=== PATIENT | male | born 1990 | race African-American/Black ===

== ENCOUNTER 2016-11-27 07:04 | Emergency (ER) | payer MEDICAID ==
[~2016-11-27] VITALS: Ht 175.3 cm; Wt 88.0 kg
[2016-11-27] MEDS ORDERED: KETOROLAC 60MG/2ML VIAL IM ONE (09:30)
[2016-11-27 09:41] LABS: BASOPHILS % 0.8 % (0.0-2.0); EOSINOPHILS % 9.6 % (0.0-5.0); HEMATOCRIT. 39.8 % (42.0-52.0); HEMOGLOBIN. 13.7 g/dL (14.0-18.0); MEAN CORPUSCULAR HEMOGLOBIN 28.6 pg (28.0-32.0); MEAN CORPUSCULAR VOLUME 83.2 fL (80.0-94.0); MEAN PLATELET VOLUME 7.4 fl (7.4-10.4); MONOCYTES % 11.6 % (2.0-8.0); PLATELET 190 x1000/uL (130-400); RED BLOOD CELL COUNT 4.79 mill/uL (4.7-6.1); RED CELL DISTRIBUTION WIDTH 14.1 % (11.6-14.6)
[2016-11-27 09:46] LABS: CHLORIDE 110 mEq/L (98-107)
[2016-11-27 09:54] LABS: CARBON DIOXIDE 24 mEq/L (21-32)
[2016-11-27] MEDS ORDERED: HYDROCODONE/ACETAMINOPHEN 5/325MG TABLET PO ONE (11:30)
[2016-11-27] MEDS ORDERED: LIDOCAINE HCL 1% 20ML VIAL (Pyxis) INJ MC ONE (11:30)
[2016-11-27] MEDS ORDERED: CEFTRIAXONE SODIUM 250 MG/VIAL IM ONE (11:30)
[2016-11-27 12:13] VITALS: BP 132/62
== END 2016-11-27 12:14 | disposition home or self-care (01) ==
LOC: ER 07:36
DX: L03.114 Cellulitis of left upper limb (principal)
CPT/HCPCS: 36415; 73130; 80053; 85025; 96372; 99285; J0696; J1885; J3490

== ENCOUNTER 2017-02-21 07:29 | Emergency (ER) | payer MEDICAID ==
[~2017-02-21] VITALS: Ht 175.3 cm; Wt 82.0 kg
[2017-02-21] MEDS ORDERED: KETOROLAC 30MG/ML VIAL IV ONE (08:15)
[2017-02-21 08:21] LABS: BASOPHILS % 0.3 % (0.0-2.0); EOSINOPHILS % 1.1 % (0.0-5.0); HEMOGLOBIN. 12.7 g/dL (14.0-18.0); LYMPHOCYTES % 24.1 % (20.0-50.0); MEAN CORPUSCULAR HEMOGLOBIN 27.9 pg (28.0-32.0); MEAN CORPUSCULAR VOLUME 81.3 fL (80.0-94.0); MEAN PLATELET VOLUME 7.8 fl (7.4-10.4); NEUTROPHILS % 62.5 % (40.0-76.0); PLATELET 225 x1000/uL (130-400); RED BLOOD CELL COUNT 4.56 mill/uL (4.7-6.1); RED CELL DISTRIBUTION WIDTH 13.4 % (11.6-14.6)
[2017-02-21 08:23] LABS: INR 1.1; PROTHROMBIN TIME 11.4 sec (9.4-11.6)
[2017-02-21 08:30] LABS: CARBON DIOXIDE 24 mEq/L (21-32); CHLORIDE 104 mEq/L (98-107)
[2017-02-21 08:32] LABS: TROPONIN I < 0.02 ng/mL (0.00-0.04)
[2017-02-21 12:46] VITALS: BP 131/70
== END 2017-02-21 12:57 | disposition home or self-care (01) ==
LOC: ER 07:43
DX: R07.9 Chest pain, unspecified (principal); J45.909 Unspecified asthma, uncomplicated; R50.9 Fever, unspecified
CPT/HCPCS: 36415; 71010; 80053; 84484; 85025; 85610; 93005; 96374; 99285; J1885; Z7610

== ENCOUNTER 2018-01-23 05:15 | Emergency (ER) | payer MEDICAID ==
[~2018-01-23] VITALS: Ht 175.3 cm; Wt 92.9 kg
[2018-01-23 07:00] VITALS: BP 136/86
== END 2018-01-23 07:00 | disposition home or self-care (01) ==
LOC: ER 05:15
DX: B35.3 Tinea pedis (principal); L03.116 Cellulitis of left lower limb; L03.115 Cellulitis of right lower limb; J45.909 Unspecified asthma, uncomplicated; R03.0 Elevated blood-pressure reading, without diagnosis of hypertension
CPT/HCPCS: 82962; 99283

== ENCOUNTER 2018-03-07 10:03 | Emergency (ER) | payer MEDICAID ==
[~2018-03-07] VITALS: Ht 180.3 cm; Wt 92.0 kg
[2018-03-07] MEDS ORDERED: SODIUM CHLORIDE 0.9% 1,000 ML IV ONE (11:10)
[2018-03-07] MEDS ORDERED: METOCLOPRAMIDE HCL 10MG/2ML VIAL IV STA (11:10)
[2018-03-07] MEDS ORDERED: MORPHINE SULFATE 4 MG/ML CPJ (NOT FOR IM USE) IV STA (11:10)
[2018-03-07] MEDS ORDERED: PANTOPRAZOLE SODIUM 40 MG/VIAL IV STA (11:10)
[2018-03-07 12:29] LABS: BASOPHILS % 0.9 % (0.0-2.0); EOSINOPHILS % 2.8 % (0.0-5.0); HEMOGLOBIN. 15.3 g/dL (14.0-18.0); LYMPHOCYTES % 27.6 % (20.0-50.0); MEAN CORPUSCULAR HEMOGLOBIN 27.7 pg (28.0-32.0); MEAN CORPUSCULAR VOLUME 83.4 fL (80.0-94.0); MEAN PLATELET VOLUME 7.4 fl (7.4-10.4); MONOCYTES % 10.1 % (2.0-8.0); NEUTROPHILS % 58.6 % (40.0-76.0); PLATELET 230 x1000/uL (130-400); RED BLOOD CELL COUNT 5.51 mill/uL (4.7-6.1); RED CELL DISTRIBUTION WIDTH 14.4 % (11.6-14.6)
[2018-03-07 12:34] LABS: CHLORIDE 104 mEq/L (98-107)
[2018-03-07 12:36] LABS: PROTHROMBIN TIME 9.9 sec (9.1-11.1)
[2018-03-07 12:56] LABS: CLARITY URINE CLEAR (CLEAR); COLOR URINE YELLOW (YELLOW); KETONES URINE TRACE (NEGATIVE); LEUKOCYTE ESTERASE URINE NEGATIVE (NEGATIVE); NITRITE URINE NEGATIVE (NEGATIVE); OCCULT BLOOD URINE NEGATIVE (NEGATIVE); PROTEIN URINE NEGATIVE (NEGATIVE); SPECIFIC GRAVITY URINE 1.028 (1.005-1.030); UROBILINOGEN URINE 0.2 E.U./dL (0.2-1.0)
[2018-03-07] MEDS ORDERED: DICYCLOMINE 10 MG/5 ML ORAL SYR PO STA (13:12)
[2018-03-07] MEDS ORDERED: VISCOUS LIDOCAINE 2% 15 ML UDC PO STA (13:12)
[2018-03-07] MEDS ORDERED: MAGNESIUM/ALUMINUM HYDROXIDE/SIMETHICONE 30ML UDC PO STA (13:12)
[2018-03-07 14:05] VITALS: BP 115/70
== END 2018-03-07 14:30 | disposition home or self-care (01) ==
LOC: ER 10:03
DX: R10.13 Epigastric pain (principal); R10.11 Right upper quadrant pain; R11.10 Vomiting, unspecified; J45.909 Unspecified asthma, uncomplicated
CPT/HCPCS: 36415; 76705; 80053; 81003; 83690; 85025; 85610; 93005; 96374; 96375; 99284; C9113; J2270; J2765; J7030

== ENCOUNTER 2018-09-16 23:54 | Emergency (ER) | payer MEDICAID ==
[~2018-09-16] VITALS: Ht 175.3 cm; Wt 105.0 kg
[2018-09-17] MEDS ORDERED: PREDNISONE 20MG TABLET PO STA (02:02)
[2018-09-17] MEDS ORDERED: IPRATROPIUM BROMIDE (0.02%) 0.5MG/2.5ML NEB HHN STA (02:02)
[2018-09-17] MEDS ORDERED: ALBUTEROL (0.083%) 2.5MG/3ML NEB HHN STA (02:02)
[2018-09-17 05:36] VITALS: BP 129/75
== END 2018-09-17 05:57 | disposition home or self-care (01) ==
LOC: ER 23:54
DX: J45.901 Unspecified asthma with (acute) exacerbation (principal)
CPT/HCPCS: 94644; 99285; J7512; J7611; Z7610

== ENCOUNTER 2018-10-05 22:25 | Emergency (ER) | payer MEDICAID ==
[~2018-10-05] VITALS: Ht 175.3 cm; Wt 100.0 kg
[2018-10-05] MEDS ORDERED: PREDNISONE 20MG TABLET PO STA (23:07)
[2018-10-05] MEDS ORDERED: ALBUTEROL (0.083%) 2.5MG/3ML NEB HHN STA (23:07)
[2018-10-05] MEDS ORDERED: IPRATROPIUM BROMIDE (0.02%) 0.5MG/2.5ML NEB HHN STA (23:07)
[2018-10-06 00:57] VITALS: BP 115/76
== END 2018-10-06 00:58 | disposition home or self-care (01) ==
LOC: ER 22:25
DX: J45.901 Unspecified asthma with (acute) exacerbation (principal)
CPT/HCPCS: 71045; 87804; 94644; 99285; J7512; J7611; Z7610

== ENCOUNTER 2021-04-26 17:41 | Emergency (ER) | payer MEDICAID ==
[~2021-04-26] VITALS: Ht 175.3 cm; Wt 98.0 kg
[2021-04-26] MEDS ORDERED: CETI10TA6 MT (20:09)
[2021-04-26] MEDS ORDERED: HYDR453.3 TP (20:09)
[2021-04-26 20:17] VITALS: BP 132/88
== END 2021-04-26 20:19 | disposition home or self-care (01) ==
LOC: ER 17:41
DX: L30.9 Dermatitis, unspecified (principal); J45.909 Unspecified asthma, uncomplicated
CPT/HCPCS: 99282

== ENCOUNTER 2021-05-27 11:07 | Emergency (ER) | payer MEDICAID ==
[~2021-05-27] VITALS: Ht 165.1 cm; Wt 81.0 kg
[~2021-05-27 11:07] MED LIST: CETI10TA6 MT; HYDR453.3 TP
[2021-05-27 11:44] VITALS: BP 140/91
[2021-05-27] MEDS ORDERED: CLIN300C12 MT (13:01)
[2021-05-27] MEDS ORDERED: LACT1CAP78 MT (13:02)
[2021-05-27] MEDS ORDERED: HYDR453.3 TP (13:08)
== END 2021-05-27 13:48 | disposition home or self-care (01) ==
LOC: ER 11:07
DX: L73.9 Follicular disorder, unspecified (principal); J45.909 Unspecified asthma, uncomplicated; Z87.891 Personal history of nicotine dependence
CPT/HCPCS: 99283

== ENCOUNTER 2023-08-12 21:02 | Emergency (ER) | payer MEDICAID ==
[~2023-08-12] VITALS: Ht 175.3 cm; Wt 88.0 kg
[~2023-08-12 21:02] MED LIST changes: +CLIN-194 MT; +LACT1CAP78 MT
[2023-08-12] MEDS: CEFTRIAXONE SODIUM 500MG VIAL IM ONE (21:30)
[2023-08-12 21:40] VITALS: BP 137/98; PULSE 90; RESP 16; TEMP 98.8; O2SAT 98
[2023-08-12 22:09] LABS: CLARITY URINE CLEAR (CLEAR); COLOR URINE YELLOW (YELLOW); GLUCOSE URINE NEGATIVE (NEGATIVE); KETONES URINE TRACE (NEGATIVE); LEUKOCYTE ESTERASE URINE NEGATIVE (NEGATIVE); NITRITE URINE NEGATIVE (NEGATIVE); OCCULT BLOOD URINE NEGATIVE (NEGATIVE); PROTEIN URINE NEGATIVE (NEGATIVE); SPECIFIC GRAVITY URINE 1.024 (1.005-1.030); UROBILINOGEN URINE 0.2 E.U./dL (0.2-1.0)
[2023-08-12] MEDS: CEFTRIAXONE SODIUM 500MG VIAL IM NR (23:50)
[2023-08-14 19:09] LABS: CHLAMYDIA TRACHOMATIS NAA Negative (Negative); NEISSERIA GONORRHOEAE NAA Negative (Negative)
== END 2023-08-12 23:53 | disposition home or self-care (01) ==
LOC: ER 21:02
DX: Z11.3 Encounter for screening for infections with a predominantly sexual mode of transmission (principal); J45.909 Unspecified asthma, uncomplicated
CPT/HCPCS: 99283; 87491; 87591; 81003; 96372; J0696

== ENCOUNTER 2024-08-03 23:41 | Emergency (ER) | payer MEDICAID ==
[~2024-08-03] VITALS: Ht 170.2 cm; Wt 82.0 kg
[2024-08-04 00:14] VITALS: TEMP 36.9
[2024-08-04] MEDS ORDERED: AMOX1TAB16 MT (00:23)
[2024-08-04] MEDS ORDERED: IBUP-2029 MT (00:23)
[2024-08-04 00:59] VITALS: BP 147/84; O2SAT 99
[2024-08-04] MEDS: KETOROLAC 30MG/ML VIAL IM ONE (01:00)
[2024-08-04] MEDS: IPRATROPIUM/ALBUTEROL 0.5-3(2.5)MG/3ML NEB HHN ONE (01:17)
[2024-08-04 01:20] VITALS: PULSE 78; RESP 20; O2SAT 96
== END 2024-08-04 01:46 | disposition home or self-care (01) ==
LOC: ER 08-04 00:30
DX: K04.7 Periapical abscess without sinus (principal); Z79.899 Other long term (current) drug therapy
CPT/HCPCS: 94640; 96372; 99283; J1885; Z7610 ×4; 94070; 94664; 98960